=== PATIENT | male | born 1980 | race Caucasian/White ===

== ENCOUNTER 2016-12-10 11:15 | Inpatient (IN) | payer OTHER ==
[~2016-12-10] VITALS: Ht 188 cm; Wt 79.4 kg
[2016-12-10] MEDS ORDERED: MAGNESIUM HYDROXIDE 30 ML LIQUID UDC PO PRN (23:30)
[2016-12-10] MEDS ORDERED: MAG HYDROX/AL HYDROX/SIMETH 30 ML LIQUID UDC PO PRN (23:30)
[2016-12-10] MEDS ORDERED: LORAZEPAM 2 MG/1 ML VIAL IM PRN (23:30)
[2016-12-10] MEDS ORDERED: HYDROXYZINE PAMOATE 25 MG CAPSULE PO PRN (23:30)
[2016-12-10] MEDS ORDERED: LORAZEPAM 1 MG TABLET PO PRN ×2 (23:30)
[2016-12-10] MEDS ORDERED: LOPERAMIDE HCL 2 MG CAPSULE PO PRN ×2 (23:30)
[2016-12-10] MEDS ORDERED: ACETAMINOPHEN 325 MG TABLET PO PRN (23:30)
[2016-12-10] MEDS ORDERED: DICYCLOMINE HCL 20 MG TABLET PO PRN (23:30)
[2016-12-10] MEDS ORDERED: MIRALAX 17 GM POWD.PACK PO PRN (23:30)
[2016-12-10] MEDS ORDERED: ONDANSETRON ODT 4 MG TAB.RAPDIS SL PRN (23:30)
[2016-12-10] MEDS ORDERED: IBUPROFEN 400 MG TABLET PO PRN (23:30)
[2016-12-10] MEDS ORDERED: hydrALAZINE HCL 25 MG TABLET PO PRN (23:30)
--- NOTE | 2016-12-10 23:30 | NUR ---
Pre Admission Assessment Pt seen in intake office. Pt appears mildly intoxicated but stable at this time. V/S WNL. Policies on medication disposal explained to and understood by patient. Pt is suitable for admission. Will admit to unit.
[2016-12-10 23:52] LABS: *AMPHETAMINE, URINE POSITIVE (NEGATIVE); *BARBITURATE, URINE NEGATIVE (NEGATIVE); *CANNABINOID, URINE NEGATIVE (NEGATIVE); *COCCAINE, URINE NEGATIVE (NEGATIVE); *OPIATE, URINE POSITIVE (NEGATIVE); *PHENCYCLIDINE SCREEN,URINE NEGATIVE (NEGATIVE)
[2016-12-10 23:55] LABS: ALANINE AMINOTRANSFERASE 72 U/L (16-63); ALKALINE PHOSPHATASE 68 U/L (50-136); ASPARTATE AMINOTRANSFERASE 87 U/L (15-37); BILIRUBIN,TOTAL 1.6 mg/dL (0.2-1.0); CARBON DIOXIDE 26 mmol/L (21-32); CHLORIDE 103 mmol/L (98-107); CREATININE 1.8 mg/dL (0.6-1.3); GLUCOSE 109 mg/dL (74-106); MAGNESIUM 2.1 mg/dL (1.8-2.4); POTASSIUM 3.9 mmol/L (3.5-5.1); TOTAL PROTEIN, SERUM 8.7 g/dL (6.4-8.2); UREA NITROGEN, BLOOD 22 mg/dL (7-18)
[2016-12-10 23:58] LABS: ETHANOL < 3 MG/DL (0-0)
[2016-12-11 00:04] LABS: BASOPHILS % (AUTO) 0.3 % (0.0-2.0); EOSINOPHILS % (AUTO) 0.4 % (0.0-7.0); HEMATOCRIT 49.1 % (40-50); HEMOGLOBIN 16.3 G/DL (14.0-18.0); LYMPHOCYTES # (AUTO) 1.5 K/UL (0.8-4.8); MEAN CORPUSCULAR HEMOGLOBIN 30.2 UUG (27.0-31.0); MEAN CORPUSCULAR HGB CONC 33 g/dL (32.0-37.0); MEAN CORPUSCULAR VOLUME 91.2 FL (82.0-92.0); MONOCYTES # (AUTO) 1.1 K/UL (0.1-1.30); MONOCYTES % (AUTO) 11.3 % (0.0-11.0); NEUTROPHILS # (AUTO) 6.9 K/UL (1.8-8.9); PLATELET COUNT (AUTO) 153 K/UL (150-450); RED BLOOD CELL COUNT(AUTO) 5.39 MIL/UL (4.7-6.1); WHITE BLOOD COUNT (AUTO) 9.5 K/UL (4.0-11.2)
[2016-12-11 00:14] VITALS: BP 134/85
[2016-12-11] MEDS ORDERED: MELA5TAB PO (00:17)
[2016-12-11] MEDS ORDERED: DIPH25TA62 PO (00:17)
--- NOTE | 2016-12-11 00:18 | NUR ---
Admission Note Pt is a 36 yo male, A+Ox4, presenting to [facility] for Methamphetamine dependence. Pt has NKA, is on Full code status, and on Regular diet. Pt is 6'2" in height and 175 LBS in weight. Pt has medical HX of Rectal SX. Pt has family HX of Substance abuse from brother (34). Pt has no Primary Care provider. Pt has been using Methamphetamine (inhalation/IV) for 5 years (1 month currently), has reached a level of $20/3 days, and last dose was $5 worth on 12-10-16. Pt has only taken [place] 10/325 one time, and dose consisted of 2 tablets on 12-10-16. Pt is taking home medications as follows: Benadryl 50mg QHSPRN, last dose was on 12-09-16, and Melatonin 5mg QHSPRN, Last dose was on 12-09-16. Pt has HX of previous detox/rehab @ [facility] for 3 days in April 2016, Rehab for 60 days, and continued sobriety for 6 months. This was the Pt's last time sober. Pt has been cigarette smoker/Vaporizer for 15 years, and has reached a rate of 5/daily. Pt appears mildly intoxicated upon admission but is stable at this time. No s/s of distress noted at this time. Respirations even and unlabored. Will continue to monitor.
[2016-12-11] MEDS ORDERED: diphenhydrAMINE 50 MG CAPSULE PO PRN (00:30)
[2016-12-11] MEDS ORDERED: diphenhydrAMINE 50 MG CAPSULE ONE (00:40)
[2016-12-11] MEDS: diphenhydrAMINE 50 MG CAPSULE PO PRN ×2 (01:12→22:06)
--- NOTE | 2016-12-11 01:12 | NUR ---
PRN Benadryl Pt c/o inability to sleep and requested for PRN Benadryl. Medication given and tolerated well. Will reassess within 1 HR. Will continue to monitor.
[2016-12-11] MEDS ORDERED: NICOTINE (01:26)
[2016-12-11] MEDS ORDERED: ADAP45GE TP (01:26)
[2016-12-11] MEDS ORDERED: TETR15DR97 OP (01:26)
[2016-12-11] MEDS ORDERED: SENNOSIDES 25 MG (01:26)
--- NOTE | 2016-12-11 02:10 | NUR ---
PRN Benadryl Reassessment Medication effective. No s/s of ASE/distress noted at this time. Respirations even and unlabored. Will continue to monitor.
[2016-12-11] MEDS ORDERED: MULT-235 PO (02:43)
[2016-12-11 04:16] VITALS: BP 129/79
--- NOTE | 2016-12-11 06:49 | NUR ---
End of shift note Pt is a 36 yo male, A+Ox4, presenting to [facility] for Methamphetamine dependence. Pt has NKA, is on Full code status, and on Regular diet. Pt has medical HX of Rectal SX. Pt is on Fall precautions. Pt was given PRN Benadryl @0112. Pt slept for a total of 4 HRS. Last CIWA: 2 @0400. No s/s of distress noted at this time. Respirations even and unlabored. Will endorse to day shift nurse.
--- NOTE | 2016-12-11 07:10 | NUR ---
Start of Shift Report from the night nurse: pt is a 36 y/o male new admission here last night for Methamphetamine dependence of $20-30 worth used IV daily; PRN Ativan ordered. Pt is a full code, NKA, Regular Diet, fall precautions ordered. HHx: Rectal Surgery 5 time, smoker, Used [place] 10/325 one tab once the night before admission, Relapse with last visit her in April 2016. V/S stable, Skin is intact. Pending new lab results in process. PRN Benadryl given for sleep and itchiness last night. Pt has home medication of a stool softener reconciled. MRSA swab done since pt was at sober living for 60 days. Last CIWA 2. Pt is asleep in room. Will cont. to monitor the pt.
[2016-12-11 08:00] VITALS: BP 133/82
[2016-12-11] MEDS: MULTIVITAMINS,THERAPEUTIC TABLET PO SCH (08:46)
--- NOTE | 2016-12-11 08:46 | NUR ---
PRN Medication Administration Pt is in his room and c/o mild muscle pain 4/10 in lower back and legs with discomfort; PRN Mortin 400mg given as ordered. Will reassess in 1H.
[2016-12-11] MEDS ORDERED: TUBERCULIN,PURIF.PROT.DERIV. 5 TU/0.1 ML TEST ID ONE (09:00)
--- NOTE | 2016-12-11 09:15 | NUR ---
Reassessment & New Orders Pt is in room resting and denies muscle pain; Motrin is effective. New orders for Lexapro 10mg PO daily so education of medication actions and SE's discussed. Pt c/o dysuria with sedimented urine, burning with voids and discomfort for 4 days; notified Dr. Celeste and mir. in process. Will cont. to monitor the pt.
[2016-12-11] MEDS: ESCITALOPRAM OXALATE 10 MG TABLET PO SCH (10:24)
[2016-12-11 12:00] VITALS: BP 128/87
[2016-12-11 12:38] LABS: *BILIRUBIN,URIN NEGATIVE (NEGATIVE); *BLOOD, URINE NEGATIVE (NEGATIVE); *CLARITY,URINE SLIGHTLY CLOUDY (CLEAR); *COLOR,URINE DARK YELLOW (YELLOW); *KETONES,URINE NEGATIVE (NEGATIVE); *PROTEIN,URINE 1+ (NEGATIVE); LEUKOCYTE ESTERASE ,URINE TRACE (NEGATIVE); NITRITE, URINE NEGATIVE (NEGATIVE); PH,URINE 5.5 (5.0-8.0); UGLUCOSE NEGATIVE (NEGATIVE)
[2016-12-11 12:54] LABS: RBC,URINE NONE SEEN /HPF (0-3); WBC,URINE 50-80 /HPF (0-3)
[2016-12-11 12:58] LABS: MUCUS,URINE FEW /LPF (0-FEW)
[2016-12-11 12:59] LABS: SQUAMOUS EPITHELIAL CELL,UR FEW /HPF (NONE SEEN)
[2016-12-11 16:00] VITALS: BP 123/79
--- NOTE | 2016-12-11 16:53 | NUR ---
Client was prompted to attend group by therapist. Client stated that he would attend if he was feeling up to it.
[2016-12-11] MEDS: LEVOFLOXACIN 500 MG TABLET PO SCH (17:08)
--- NOTE | 2016-12-11 19:10 | NUR ---
End of Shift Report to night nurse: pt is a 36 y/o male new admission here last night for Methamphetamine dependence of $20-30 worth used IV daily; PRN Ativan PO d/c'd since the pt is having low w/d s/sx, so only Ativan IM for seizures and d/c the CIWA assessment. Pt is a full code, NKA, Regular Diet, fall precautions ordered. New Dx of UTi. HHx: Rectal Surgery 5 time, smoker, Used [place] 10/325 one tab once the night before admission, Relapse with last visit her in April 2016. Features symmetrical, PERRLA 3mm, very mild dizziness with stable gait this morning, no BABIN or seizures noted. Pt denies chest pain. No SOB or acute respiratory distress noted during my shift. No N/V/D and BM x1, pt refused stool softener. Pt c/o dysuria with burning and discomfort for 4 days; N/O for UA with abnorms so new order for levaquin given as ordered. V/S stable, New orders for t BMP , CBC, liver panel and Chlamydia lab for tomorrow. PRN Motrin given at 0846 r/t muscle aches. Skin is intact with no itchiness during my shift. MRSA swab done since pt was at sober living for 60 days and results in process Pt remained w/d to self with depression refused to attend group therapy and activities; encouraged pt to consult with the psychiatrist so new order for Lexapro given during my shift. Last CIWA 0
--- NOTE | 2016-12-11 19:11 | NUR ---
Start of shift note Received report from day shift nurse. Pt is a 36 yo male, A+Ox4, presenting to [facility] for Methamphetamine dependence. Pt has NKA, is on Full code status, and on Regular diet. Pt has medical HX of Rectal SX. Pt is on Fall precautions. Pt is on PRN medications , tolerated well. No s/s of distress noted at this time. Respirations even and unlabored. Will continue to monitor.
[2016-12-11 20:14] VITALS: BP 120/83
--- NOTE | 2016-12-11 22:06 | NUR ---
PRN Benadryl Pt c/o inability to sleep and requested for PRN Benadryl. Medication given and tolerated well. Will reassess within 1 HR. Will continue to monitor.
--- NOTE | 2016-12-11 23:04 | NUR ---
PRN Benadryl Reassessment Medication effective. Pt is resting well in bed. No s/s of ASE/distress noted at this time. Respirations even and unlabored. Will continue to monitor.
[2016-12-12 00:11] VITALS: BP 118/74
[2016-12-12 04:25] VITALS: BP 115/71
--- NOTE | 2016-12-12 07:00 | NUR ---
End of shift note Pt is a 36 yo male, A+Ox4, presenting to [facility] for Methamphetamine dependence. Pt has NKA, is on Full code status, and on Regular diet. Pt has medical HX of Rectal SX. Pt is on Fall precautions. Pt was given PRN Benadryl @2206. Pt slept for a total of 8 HRS. No s/s of distress noted at this time. Respirations even and unlabored. Will endorse to day shift nurse.
[2016-12-12 07:59] LABS: BILIRUBIN,DIRECT 0.2 mg/dL (0.0-0.2); BILIRUBIN,TOTAL 0.8 mg/dL (0.2-1.0); CREATININE 1.1 mg/dL (0.6-1.3); POTASSIUM 4.2 mmol/L (3.5-5.1); TOTAL PROTEIN, SERUM 7.1 g/dL (6.4-8.2)
[2016-12-12 08:00] VITALS: BP 130/88
--- NOTE | 2016-12-12 08:05 | NUR ---
START OF SHIFT: RECEIVED PT A/O X4. HE PRESENTS WITH BLUNTED AFFECT AND DEPRESSED MOOD. HE ILA S/I AND H/I. HE STATES HE SLEPT OK AND HAS A DECENT APPETITE. HE STATES HE WILL ATTEND GROUPS TODAY. OBSERVATION LEVEL OF CARE NOTED WITH PRNS AVAILABLE FOR S/S OF W/D. ENCOURAGED PT TO INCREASE FLUID INTAKE TO ASSIST IN FACILITATING DETOX PROCESS.WILL CONTINUE TO MONITOR AND OFFER SUPPORT.
[2016-12-12] MEDS: MULTIVITAMINS,THERAPEUTIC TABLET PO SCH (09:18)
[2016-12-12] MEDS: ESCITALOPRAM OXALATE 10 MG TABLET PO SCH (09:18)
[2016-12-12 12:00] VITALS: BP 121/78
[2016-12-12 13:11] LABS: HEPATITIS B SURFACE AG Negative (Negative)
[2016-12-12] MEDS ORDERED: LEVO500T2 PO (13:33)
[2016-12-12] MEDS ORDERED: DIPH50CA37 PO (13:33)
[2016-12-12] MEDS ORDERED: ESCI10TA PO (13:33)
[2016-12-12] MEDS ORDERED: AZITHROMYCIN 250 MG TABLET PO ONE (14:00)
[2016-12-12] MEDS: LEVOFLOXACIN 500 MG TABLET PO SCH (15:10)
[2016-12-12 16:00] VITALS: BP 135/83
[2016-12-12 17:42] LABS: *AMPHETAMINE, URINE POSITIVE (NEGATIVE); *BARBITURATE, URINE NEGATIVE (NEGATIVE); *CANNABINOID, URINE NEGATIVE (NEGATIVE); *COCCAINE, URINE NEGATIVE (NEGATIVE); *OPIATE, URINE POSITIVE (NEGATIVE); *PHENCYCLIDINE SCREEN,URINE NEGATIVE (NEGATIVE)
--- NOTE | 2016-12-12 18:30 | NUR ---
END OF SHIFT: PT CONTINUES ON OBSERVATION. NO PRNS GIVEN ON DAY SHIFT. HE CONTINUES ON ABT THERAPY FOR UTI. NEW ONE TIME ORDER FOR ZITHROMAX. ORDER CARRIED OUT AND ADMINISTERED. PT SLEPT ON AND OFF TODAY AND STATES HE FELT FATIGUED. HE WAS COMPLIANT WITH INCREASED FLUIDS. ENCOURAGED H7I MEETING TONIGHT. WILL PASS SHIFT REPORT TO ONCOMING NIGHT NURSE.
--- NOTE | 2016-12-12 19:45 | NUR ---
START OF SHIFT Received report from day shift nurse. Pt is in his room resting. He is a 36 yo male admitted to [facility] on 12/11 for methamphetamine dependence. He is A&O x4 and ambulatory. NKA, full code status, and on a regular diet. He has a PMH of rectal surgery. On admission he reported using methamphetamine $20 worth every 3 days. He used [place] one time prior to admission. He is on observation with no taper ordered. Pt is scheduled for discharge tomorrow. He has two pick on mosquera on his face r/t drug use. He reports mild restlessness. No other s/s of discomfort. He verbalizes that he is ready for the next step in his recovery. Fall precautions in place. Bed is down with call light in reach. Addendum: 12/12/16 at 2128 by GAMAL RODRIGUEZ RN Pt is being treated for a UTI with PO abx.
[2016-12-12 20:00] VITALS: BP 121/78
[2016-12-12] MEDS: NEOMY/BACITRAC/POLYMI OINT 28.35 GM TUBE TOP SCH (21:12)
--- NOTE | 2016-12-12 21:15 | NUR ---
Nursing Note Pt has two small abrasions on his face from "skin picking" while under the influence of drugs. Reported to MD with orders received for triple antibiotic ointment.
[2016-12-12] MEDS: diphenhydrAMINE 50 MG CAPSULE PO PRN (22:01)
--- NOTE | 2016-12-12 22:02 | NUR ---
PRN Benadryl Pt reports inability to sleep. PRN Benadryl administered.
--- NOTE | 2016-12-12 23:02 | NUR ---
PRN Benadryl reassessment PRN Benadryl effective. Pt is lying in bed resting with eyes closed. Respirations even and unlabored. Safety measures in place.
--- NOTE | 2016-12-13 | NUR ---
0000 Vitals refused. Pt refused to be woken for 0000 vitals. Respirations even and unlabored. Safety measures in place.
--- NOTE | 2016-12-13 04:00 | NUR ---
0400 Vitals refused. Pt refused to be woken for 0400 vitals. Respirations even and unlabored. Safety measures in place.
--- NOTE | 2016-12-13 07:17 | NUR ---
END OF SHIFT Report provided to day shift nurse. Pt is lying in bed resting. He is a 36 yo male admitted to [facility] on 12/11 for methamphetamine dependence. He is A&O and ambulatory. NKA, full code status, and on a regular diet. He has a PMH of rectal surgery. Upon admission he admitted to using methamphetamine $20 worth every 3 days. He used [place] one time prior to admission. Pt was placed on observation with PRN's available. He is scheduled for discharge today. Pt was ordered triple antibiotic for two pick mosquera on his face r/t drug use. PRN Benadryl administered. He drank 1255mL and slept for 8 hours[address] Fall precautions in place. Bed is down with call light in reach.
--- NOTE | 2016-12-13 07:20 | NUR ---
Start of shift note SBAR report rcv'd. Pt was admitted for observation of methamphetamine withdrawal. Pt is a full code, on a regular diet and denies any allergies to any medication. Pt states that he feels ready for discharge. Pt has no complaints at this time. Will continue to monitor pt. All needs addressed at this time.
[2016-12-13 08:00] VITALS: BP 124/75
[2016-12-13] MEDS: NEOMY/BACITRAC/POLYMI OINT 28.35 GM TUBE TOP SCH (08:47)
[2016-12-13] MEDS: MULTIVITAMINS,THERAPEUTIC TABLET PO SCH (08:47)
[2016-12-13] MEDS: ESCITALOPRAM OXALATE 10 MG TABLET PO SCH (08:47)
--- NOTE | 2016-12-13 09:32 | NUR ---
Discharge note Pt was admitted for observation of methamphetamine withdrawal. Pt VS are WNL. Pt LBM 12/12/16. Pt states that he feels ready for discharge. Denies any s/s of withdrawal. Pt verbalized his understanding of the discharge instructions. Discharge packet, medications returned and all belongings returned to pt. Pt ID band removed, pt ambulated off of unit with [employer], left facility via [facility]. Addendum: 12/13/16 at 1006 by SUYAPA NAZARIO RN pt denies any SI/HI.
== END 2016-12-13 09:32 | disposition other institution (70) | DRG 895 ==
LOC: SRC 23:14
PROVIDERS: ADMIT Internal Medicine; ATTEND Internal Medicine
PROC: HZ2ZZZZ Detoxification Services for Substance Abuse Treatment (ICD-10-PCS; principal; 2016-12-10)
PROC: HZ41ZZZ Group Counseling for Substance Abuse Treatment, Behavioral (ICD-10-PCS; 2016-12-12)
DX: F15.23 Other stimulant dependence with withdrawal (principal); N17.9 Acute kidney failure, unspecified; F17.210 Nicotine dependence, cigarettes, uncomplicated; F11.120 Opioid abuse with intoxication, uncomplicated; N14.1 Nephropathy induced by other drugs, medicaments and biological substances; K71.9 Toxic liver disease, unspecified; N34.2 Other urethritis; Z72.51 High risk heterosexual behavior
CPT/HCPCS: 36415; 70030-TC; 80307; 80324; 80361; 83735; 85025; 86580; 86592; 86705; 86803; 87086; 87340; 87491; 87806; G0480; Q0144; Q0163